=== PATIENT | female | born 1955 | race Caucasian/White ===

== ENCOUNTER 2018-11-20 11:50 | Emergency (ER) | payer SELFPAY ==
[2018-11-20] MEDS ORDERED: KETOROLAC 30 MG/ML INJ ONE (13:06)
[2018-11-20 13:10] LABS: Urine Blood NEGATIVE (NEG); Urine Glucose NEGATIVE (NEG); Urine Protein NEGATIVE (NEG); Urine Specific Gravity 1.025 (1.005-1.030); Urine pH 5.5 (5.0-7.0)
[2018-11-20 13:32] LABS: Absolute Lymphocytes (CBC) 1.6 K/uL (0.7-4.9); Basophils % 0.3 % (0-1.3); Hematocrit 34.1 % (36.0-45.0); Lymphocytes % 18.5 % (15.3-44.8); RBC Red Blood Cell Count 3.77 M/uL (3.86-4.86)
--- NOTE | 2018-11-20 13:40 | RAD REPORT ---
EXAM DESCRIPTION: CT - Stone Protocol - 11/20/2018 1:17 pm CLINICAL HISTORY: Flank pain, history of recent UTI diagnosis COMPARISON: None. TECHNIQUE: Axial 5 mm thick images were obtained without oral or IV contrast. The [id number] span s the entirety of the system including uppermost abdomen and lung bases. All CT scans are performed using dose optimization technique as appropriate and may include automated exposure control or mA/KV adjustment according to patient size. FINDINGS: Mild to moderate dilatation of the left side pelvis and calices noted secondary to a 9 mil limeter calcification in the proximal left ureter. On a KUB projection the stone is along the left la teral margin of the L2-3 disc space possibly superimposed on the L3 left transverse process base. No right-sided hydronephrosis. No other obstructing or nonobstructing calculi. There is stranding jacqueline ng the course of the left ureter. The stranding along the left ureter is distal to the obstructing ca lculus. No additional ureteral calculus seen. There is no calculus in a partially contracted urinary bladder. No suspicious renal masses. A 3.5 centimeter exophytic cyst projects from the posterior mid right ki dney. Isodense masses and pyelonephritis are not excluded on a stone protocol CT scan. No significant adrenal finding. Imaged portions of the liver, spleen and pancreas show no suspicious findings on non-contrast imaging . No gallbladder or biliary tree abnormality identified. Small hiatal hernia is present. No gastric abnormality. No small bowel abnormality. Large stool volum e fills the cecum. There is an overall moderate stool volume throughout the colon. There is hyperdens e material within the colon. No oral contrast was given for this examination. This may be from medica tion or possibly a diagnostic study at an outside facility. No acute GI findings are seen. No hernia, mass or bulky lymphadenopathy noted. No free air, free fluid or inflammatory stranding. Disc and bony degenerative changes are present. There is significant L5-S1 disc space narrowing with degenerative gas in the disc space. L5 pars interarticularis defects are present with grade 1-2 spond ylolisthesis. IMPRESSION: Mild to moderate hydronephrosis of the left pelvis, calices and proximal most ureter sec ondary to a 9 mm obstructing calculus of the proximal left ureter. On a KUB projection the stone is along the left lateral margin of the L2-3 disc space superimposed on the L3 left transverse process base. There is stranding along the left ureter distal to the stone. No other obstructing or nonobstructing calculi seen. Ureteritis and pyelonephritis are not excluded. Additional nonacute findings are detailed in the body of the report. Isodense masses and pyelonephritis are not excluded on stone protocol technique.
[2018-11-20 13:41] LABS: Albumin 3.5 g/dL (3.4-5.0); Bilirubin Direct 0.1 mg/dL (0-0.2); Bilirubin Total 0.3 mg/dL (0.2-1.0); Potassium 4.2 mmol/L (3.5-5.1); Protein, Total 7.8 g/dL (6.4-8.2)
[2018-11-20] MEDS ORDERED: FENTANYL CITR 100 MCG/2 ML ONE ×3 (13:44→16:31)
--- NOTE | 2018-11-20 14:31 | EDPHYS ---
Physician Documentation [facility] Name: Lindsay Gilbert Age: 63 yrs Sex: Female : 1955 Arrival Date: 11/20/2018 Time: 11:53 Bed 7 Private MD: ANA LUISA ALBA ED Physician Vernon Venegas HPI: 11/20 12:43 This 63 yrs old Female presents to ER via Ambulatory with complaints of Low jr8 Back Pain, Urinary Problem. 12:43 The patient complains of pain in the left flank. The pain radiates to the left lower jr8 quadrant. Onset: The symptoms/episode began/occurred acutely, 4 day(s) ago, and became worse yesterday. Modifying factors: The symptoms are alleviated by nothing. the symptoms are aggravated by movement. Associated signs and symptoms: Pertinent negatives: dysuria, fever, urinary frequency. Severity of pain: At its worst the pain was moderate in the emergency department the pain is actually worse is a 10 / 10. The patient has not experienced similar symptoms in the past. The patient has been recently seen by a physician: the patient's primary care provider, 4 day(s) ago, with similar presenting complaints, and apparently given a diagnosis of UTI, was told she had blood in urine, but the patient's symptoms have worsened, but the patient's symptoms have persisted. Patient reports left flank pain onset 4 days ago, saw PCP on that day and was diagnosed with UTI and told her had blood in her urine. She was given cipro and ibuprofen which she has been taking as prescribed. Patient reports ibuprofen initially helped significantly, but the pain worsened yesterday morning and is unrelieved by ibuprofen. She denies any urinary symptoms previously or currently. 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 - Social history:: Smoking status: Patient/guardian denies using tobacco, the patient reports quitting approximately 5 years ago. - Ebola Screening: : Patient denies travel to an Ebola-affected area in the 21 days before illness onset. ROS: 12:43 Constitutional: Negative for fever, chills, and weight loss, Eyes: Negative for injury, jr8 pain, redness, and discharge, ENT: Negative for injury, pain, and discharge, Neck: Negative for injury, pain, and swelling, Cardiovascular: Negative for chest pain, palpitations, and edema, Respiratory: Negative for shortness of breath, cough, wheezing, and pleuritic chest pain, Abdomen/GI: Negative for abdominal pain, nausea, vomiting, diarrhea, and constipation, MS/Extremity: Negative for injury and deformity, Skin: Negative for injury, rash, and discoloration, Neuro: Negative for headache, weakness, numbness, tingling, and seizure. 12:43 Back: Positive for flank pain, on the left, Negative for injury or acute deformity, decreased range of motion. Exam: 12:43 Constitutional: This is a well developed, well nourished patient who is awake, alert, jr8 and in no acute distress. Appears uncomfortable and restless. Head/Face: Normocephalic, atraumatic. Cardiovascular: Regular rate and rhythm with a normal S1 and S2. No gallops, murmurs, or rubs. Normal PMI, no JVD. No pulse deficits. Respiratory: Lungs have equal breath sounds bilaterally, clear to auscultation and percussion. No rales, rhonchi or wheezes noted. No increased work of breathing, no retractions or nasal flaring. Abdomen/GI: Soft, non-tender, with normal bowel sounds. No distension or tympany. No guarding or rebound. No evidence of tenderness throughout. Skin: Warm, dry with normal turgor. Normal color with no rashes, no lesions, and no evidence of cellulitis. MS/ Extremity: Pulses equal, no cyanosis. Neurovascular intact. Full, normal range of motion. Neuro: Awake and alert, GCS 15, oriented to person, place, time, and situation. Cranial nerves II-XII grossly intact. Motor strength 5/5 in all extremities. Sensory grossly intact. Cerebellar exam normal. Normal gait. 12:43 Back: pain, that is moderate, normal spinal alignment noted, CVA tenderness, is absent, vertebral tenderness, is not appreciated, muscle spasm, is not present. Vital Signs: 12:05 BP 171 / 86; Pulse 74; Resp 18; Temp 98.8(TE); Pulse Ox 97% on R/A; Weight 106.59 kg; hj Height 5 ft. 6 in. (167.64 cm); Pain 10/10; 13:31 BP 156 / 93; Pulse 69; Resp 17; Pulse Ox 99% on R/A; tw2 14:28 BP 149 / 86; Pulse 76; Resp 16; Pulse Ox 97% on R/A; tw2 14:55 BP 154 / 90; Pulse 64; Resp 17; Pulse Ox 99% ; Pain 7/10; tw2 16:23 BP 138 / 85; Pulse 83; Resp 17; Pulse Ox 99% on R/A; Pain 8/10; tw2 12:05 Body Mass Index 37.93 (106.59 kg, 167.64 cm) hj MDM: 12:23 Patient medically screened. jr8 14:16 Data reviewed: vital signs, nurses notes, lab test result(s), radiologic studies, CT jr8 scan. Data interpreted: Pulse oximetry: on room air is 99 %. Interpretation: normal. Counseling: I had a detailed discussion with the patient and/or guardian regarding: the historical points, exam findings, and any diagnostic results supporting the discharge/admit diagnosis, lab results, radiology results, the need to transfer to another facility, [facility] does not immediately have the required specialist. 14:29 ED course: Dr. Obando and Urology consulted and accepted patient at [facility] for jr8 obstructed renal stone left side . 11/20 12:41 Order name: Basic Metabolic Panel; Complete Time: 13:44 [facility] 11/20 12:41 Order name: CBC with Diff; Complete Time: 13:40 [facility] 11/20 12:41 Order name: Creatinine for Radiology; Complete Time: 13:40 [facility] 11/20 12:41 Order name: Hepatic Function; Complete Time: 13:44 [facility] 11/20 12:41 Order name: Lipase; Complete Time: 13:44 [facility] 11/20 12:53 Order name: Urine Dipstick--Ancillary (enter results); Complete Time: 13:13 11/20 12:07 Order name: Urine Dipstick-Ancillary (obtain specimen); Complete Time: 12:57 11/20 12:41 Order name: IV Saline Lock; Complete Time: 13:11 [facility] 11/20 12:41 Order name: CT Stone Protocol; Complete Time: 13:44 jr8 11/20 12:41 Order name: Labs collected and sent; Complete Time: 13:11 jr8 Administered Medications: 13:09 Drug: TORadol - Ketorolac 15 mg Route: IVP; Site: right upper arm; tw2 13:23 Follow up: Response: No adverse reaction; Pain is unchanged, physician notified tw2 13:30 Drug: fentaNYL (PF) 50 mcg Route: IVP; Site: right upper arm; tw2 14:27 Follow up: Response: No adverse reaction; Pain is decreased tw2 14:20 Drug: fentaNYL (PF) 50 mcg Route: IVP; Site: right upper arm; tw2 16:35 Follow up: Response: No adverse reaction; Pain is decreased tw2 14:35 Drug: NS 0.9% 1000 ml Route: IV; Rate: 100 ml/hr; Site: right upper arm; tw2 16:35 Follow up: IV Status: Infusion continued upon transfer tw2 14:54 Drug: fentaNYL (PF) 50 mcg Route: IVP; Site: right upper arm; tw2 15:00 Follow up: Response: No adverse reaction; Pain is decreased tw2 Disposition: 11/21 06:49 Co-signature as Attending Physician, Vernon Venegas MD I agree with the assessment and kdr plan of care. Disposition: 11/20/18 14:[address] [facility]. Diagnosis is Hydronephrosis with renal and ureteral calculous obstruction. - Reason for transfer: Higher level of care. - Accepting physician is Dr. Obando. - Condition is Stable. - Problem is new. - Symptoms have improved. Signatures: Dispatcher [employer] EDMS Vernon Venegas MD MD [facility] Shade Miranda PA PA jr8 Isidro Miles RN RN Monique Blake RN RN tw2 Corrections: (The following items were deleted from the chart) 11/20 16:37 14:30 11/20/2018 14:[address] [facility]. Diagnosis is tw2 Hydronephrosis with renal and ureteral calculous obstruction. Reason for transfer: Higher level of care. Accepting physician is Dr. Obando. Condition is Stable. Problem is new. Symptoms have improved. jr8
--- NOTE | 2018-11-20 14:31 | ER ---
Nurse's Notes [facility] Name: Lindsay Gilbert Age: 63 yrs Sex: Female : 1955 Arrival Date: 11/20/2018 Time: 11:53 Bed 7 Private MD: ANA LUISA ALBA Diagnosis: Hydronephrosis with renal and ureteral calculous obstruction Presentation: 11/20 12:02 Presenting complaint: Patient states: i went ot my doc Saturday, told i have acute UTI, hj was Rx, cipro oral and ibuprofen 800 mg; isabel been taking those meds but the pain meds not helping with the pain; denies F/C; denies N/V;. Transition of care: patient was not received from another setting of care. Onset of symptoms was November 20, 2018. Risk Assessment: Do you want to hurt yourself or someone else? Patient reports no desire to harm self or others. Initial Sepsis Screen: Does the patient meet any 2 criteria? No. Patient's initial sepsis screen is negative. Does the patient have a suspected source of infection? No. Patient's initial sepsis screen is negative. Care prior to arrival: None. 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 - Social history:: Smoking status: Patient/guardian denies using tobacco, the patient reports quitting approximately 5 years ago. - Ebola Screening: : Patient denies travel to an Ebola-affected area in the 21 days before illness onset. Screenin:01 Abuse screen: Denies threats or abuse. Nutritional screening: No deficits noted. tw2 Tuberculosis screening: No symptoms or risk factors identified. Fall Risk None identified. Assessment: 13:01 General: Appears uncomfortable, obese, Behavior is calm, cooperative, appropriate for tw2 age. Pain: Complains of pain in abdomen and left lower quadrant. Neuro: Level of Consciousness is awake, alert, obeys commands, Oriented to person, place, time, situation. Cardiovascular: Heart tones S1 S2 Patient's skin is warm and dry. Respiratory: Airway is patent Respiratory effort is even, unlabored, Respiratory pattern is regular, symmetrical, Breath sounds are clear bilaterally. GI: Abdomen is round non-distended, obese, Bowel sounds present X 4 quads. : Reports urgency, urinary frequency. EENT: No signs and/or symptoms were reported regarding the EENT system. Derm: No signs and/or symptoms reported regarding the dermatologic system. Musculoskeletal: Range of motion: intact in all extremities. 13:31 Reassessment: No changes from previously documented assessment. Patient and/or family tw2 updated on plan of care and expected duration. Pain level reassessed. Patient is alert, oriented x 3, equal unlabored respirations, skin warm/dry/pink. 13:58 Reassessment: Lemon glycerin swabs given to the pt. sv 14:28 Reassessment: Patient appears in no apparent distress at this time. Patient and/or tw2 family updated on plan of care and expected duration. Pain level reassessed. Patient is alert, oriented x 3, equal unlabored respirations, skin warm/dry/pink. Patient states feeling better. 14:55 Reassessment: Patient and/or family updated on plan of care and expected duration. Pain tw2 level reassessed. Patient is alert, oriented x 3, equal unlabored respirations, skin warm/dry/pink. pt c/o pain, medicated as ordered, spouse went home to get belongings, pt would like ems to wait until he returns, pt instructed that report has not been called yet for the transfer and that they have time. 16:24 Reassessment: Patient appears in no apparent distress at this time. Patient and/or tw2 family updated on plan of care and expected duration. Pain level reassessed. Patient is alert, oriented x 3, equal unlabored respirations, skin warm/dry/pink. pt c/o pain, medicated as ordered. 16:37 Reassessment: No changes from previously documented assessment. Patient and/or family tw2 updated on plan of care and expected duration. Pain level reassessed. Patient is alert, oriented x 3, equal unlabored respirations, skin warm/dry/pink. Vital Signs: 12:05 BP 171 / 86; Pulse 74; Resp 18; Temp 98.8(TE); Pulse Ox 97% on R/A; Weight 106.59 kg; hj Height 5 ft. 6 in. (167.64 cm); Pain 10/10; 13:31 BP 156 / 93; Pulse 69; Resp 17; Pulse Ox 99% on R/A; tw2 14:28 BP 149 / 86; Pulse 76; Resp 16; Pulse Ox 97% on R/A; tw2 14:55 BP 154 / 90; Pulse 64; Resp 17; Pulse Ox 99% ; Pain 7/10; tw2 16:23 BP 138 / 85; Pulse 83; Resp 17; Pulse Ox 99% on R/A; Pain 8/10; tw2 12:05 Body Mass Index 37.93 (106.59 kg, 167.64 cm) ED Course: 11:53 Patient arrived in ED. cl3 11:54 ANA LUISA ALBA is Private Physician. cl3 12:04 Triage completed. hj 12:05 Arm band placed on. hj 12:23 Shade Miranda PA is PHCP. jr8 12:23 Vernon Venegas MD is Attending Physician. jr8 12:47 Monique Blake, LEN is Primary Nurse. tw2 12:56 Urine collected: clean catch specimen, clear, kyler colored. jb1 13:00 Missed attempt(s): 22 gauge in right antecubital area. blood collected in lavender tube tw2 only. 13:01 Bed in low position. Call light in reach. Pulse ox on. NIBP on. tw2 13:09 Initial lab(s) drawn, by me, sent to lab. Inserted saline lock: 22 gauge in right upper jb1 arm, using aseptic technique. Blood collected. 13:18 CT Stone Protocol In Process Unspecified. EDMS 14:06 initiated a transfer with Brooklynn at the [facility] [place]. eb 14:15 connected the urologist fire prevention specialist for [facility] with [facility] for patient transfer eb consultation. 14:26 connected the hospitalist fire prevention specialist for [facility] with [facility] for patient transfer eb consultation. 14:56 administrative approval given by Brooklynn Hickey RN/ patient has been accepted to [facility] 16 tower bed 1615/ Jay [facility] has accepted the patient in transfer/ report to be called to [phone]. 15:11 Awaiting: unsuccessful attempt to call report to [facility] at this time. tw2 15:27 Report given to LEN Best at [facility]. tw2 16:37 No provider procedures requiring assistance completed. Patient transferred, IV remains tw2 in place. Administered Medications: 13:09 Drug: TORadol - Ketorolac 15 mg Route: IVP; Site: right upper arm; tw2 13:23 Follow up: Response: No adverse reaction; Pain is unchanged, physician notified tw2 13:30 Drug: fentaNYL (PF) 50 mcg Route: IVP; Site: right upper arm; tw2 14:27 Follow up: Response: No adverse reaction; Pain is decreased tw2 14:20 Drug: fentaNYL (PF) 50 mcg Route: IVP; Site: right upper arm; tw2 16:35 Follow up: Response: No adverse reaction; Pain is decreased tw2 14:35 Drug: NS 0.9% 1000 ml Route: IV; Rate: 100 ml/hr; Site: right upper arm; tw2 16:35 Follow up: IV Status: Infusion continued upon transfer tw2 14:54 Drug: fentaNYL (PF) 50 mcg Route: IVP; Site: right upper arm; tw2 15:00 Follow up: Response: No adverse reaction; Pain is decreased tw2 Outcome: 14:30 ER care complete, transfer ordered by . karyn 16:37 Patient left the ED. tw2 16:37 Transferred by ground EMS to [facility]. tw2 16:37 Condition: stable 16:37 Instructed on the need for transfer. Signatures: Dispatcher [employer] EDMS Connor Segal jbZarina Barber, RN Shade Beyer PA PA jr8 Isidro Miles RN RN hj Wise, Tara, RN RN tw2 Shivani Ovalles Charde cl3 Corrections: (The following items were deleted from the chart) 12:07 12:05 Pulse 74bpm; Resp 18bpm; Pulse Ox 97% RA; Temp 98.8F Temporal; 106.59 kg; Height hj 5 ft. 6 in.; BMI: 37.9; Pain 10/10; hj 13:23 13:05 Inserted saline lock: 22 gauge in right upper arm, using aseptic technique. tw2 ,using aseptic technique. per Samantha Ryan Blood collected. tw2
[2018-11-20] MEDS ORDERED: NA CHLORIDE 0.9% 1,000 ML ONE (14:49)
== END 2018-11-20 16:37 | disposition short-term general hospital (02) ==
LOC: ER 11:50
DX: N13.2 Hydronephrosis with renal and ureteral calculous obstruction (principal); Z87.891 Personal history of nicotine dependence
CPT/HCPCS: 36415; 74176; 76377; 80048; 80076; 81003; 83690; 85025; 96361; 96374; 96375; 99285; J3010; J7030

== ENCOUNTER 2018-12-01 11:16 | Emergency (ER) | payer SELFPAY ==
--- OUTSIDE RECORDS SUMMARY | 2018-12-01 11:23 | XMS REPORT | Clinical Summary ---
:1955 Author Organization [facility] Address [address] [place] [address] Care Team Providers Name Role Phone Pcp, No Primary Care Provider Unavailable Allergies Active Allergy Reactions Severity Noted Date Comments Penicillins Swelling High 11/20/2018 Medications Medication Sig Dispensed Refills Start Date End Date Status oxybutynin (DITROPAN) Take 1 tablet 30 tablet 0 11/21/2018 Active 5 MG tablet (5 mg total) 9 by mouth 3 (three) times daily as needed (bladder spasms) for up to 30 days. tamsulosin (FLOMAX) Take 1 30 capsule 0 11/22/2018 Active 0.4 mg Cap 24 hr capsule (0.4 9 capsule mg total) by mouth daily for 30 days. HYDROcodone-acetamino Take 1 tablet 30 tablet 0 11/21/2018 Active phen (NORCO 5-325) by mouth 9 5-325 mg per tablet every 4 (four) hours as needed for up to 10 days. Max Daily Amount: 6 tablets ciprofloxacin HCl Take 500 mg 0 Discontinued (CIPRO) 500 MG by mouth 2 9 tabletIndications: (two) times Bacterial Urinary daily. Tract Infection ibuprofen Take 800 mg 0 Discontinued (ADVIL,MOTRIN) 800 MG by mouth 9 tabletIndications: every 8 Pain (eight) hours as needed for Pain. phenazopyridine Take 2 10 tablet 0 11/21/2018 (PYRIDIUM) 95 MG tablets (190 9 tablet mg total) by mouth 3 (three) times daily as needed (dysuria) for up to 3 days. Active Problems Problem Noted Date Obstructive uropathy 11/20/2018 Encounters Date Type Specialty Care Team Description 11/21/2018 Surgery Melodie, CYSTOSCOPY,INSERTION MD Giorgi URETERAL STENTS 11/21/2018 Anesthesia Event [place], Finn EmersonDESHAUN 11/20/2018 - Hospital Encounter General Internal Elia Obando Obstructive uropathy 11/21/2018 MD Lazaro Evans Sonal Muralinath, MD 11/20/2018 Travel after 11/30/2017 Social History Tobacco Use Types Packs/Day Years Used Date Former Smoker Cigarettes Quit: 2013 Tobacco Cessation: Counseling Given: No Alcohol Use Drinks/Week oz/Week Comments No Alcohol Habits Answer Date Recorded How often do you have a drink containing alcohol? Never 11/20/2018 How many drinks containing alcohol do you have on a typical Not asked day when you are drinking? How often do you have six or more drinks on one occasion? Not asked Sex Assigned at Date Recorded Not on file Job Start Date Occupation Industry Not on file Not on file Not on file Travel History Travel Start Travel End No recent travel history available. Last Filed Vital Signs Vital Sign Reading Time Taken Blood Pressure 124/76 11/21/2018 3:17 PM CDT Pulse 108 11/21/2018 3:17 PM CDT Temperature 36.6 C (97.9 F) 11/21/2018 3:17 PM CDT Respiratory Rate 18 11/21/2018 3:17 PM CDT Oxygen Saturation 94% 11/21/2018 3:17 PM CDT Inhaled Oxygen Concentration - - Weight 106.6 kg (235 lb) 11/20/2018 8:11 PM CDT Height 167.6 cm (5' 6") 11/20/2018 8:11 PM CDT Body Mass Index 37.93 11/20/2018 8:11 PM CDT Plan of Treatment Not on file Implants Implanted Type Area Direct Support Professional Device Shelf Model / Identifier Expiration Serial / Date Lot Set Stent Injection 6x26cm [id number] - [id number] IMPLANTS Left: [employer] 06/24/2020 [id number] / Implanted: Qty: 1 on 11/21/2018 by Giorgi Sewell MD [employer]: ONCOLOGY / [id number] Procedures Procedure Name Priority Date/Time Associated Diagnosis Comments RHYTHM STRIP - 11/24/2018 12:00 SCAN PM CDT URINE CULTURE Routine 11/21/2018 8:09 Results for this AM CDT procedure are in the results section. CYSTOSCOPY,INSERTI 11/21/2018 7:15 Ureteral stone with ON URETERAL STENTS AM CDT hydronephrosis Special Needs REQ 2130 BASIC METABOLIC PANEL (7) Routine 11/21/2018 1:25 AM CDT CBC W/PLT COUNT & AUTO Routine 11/21/2018 12:57 AM CDT Results for this DIFFERENTIAL procedure are in the results section. APTT Routine 11/21/2018 12:57 AM CDT PROTHROMBIN TIME/INR Routine 11/21/2018 12:57 AM CDT CBC W/PLT COUNT & AUTO Routine 11/21/2018 12:57 AM CDT Results for this DIFFERENTIAL procedure are in the results section. after 11/30/2017 Results RHYTHM STRIP - SCAN (11/24/2018 12:00 PM CDT) Narrative Performed At Urine culture (11/21/2018 8:09 AM CDT) Result No growth [facility] Specimen Urine - Urine, Surgically Obtained Performing Organization Address City/State/Zipcode Phone Number [facility] [address] [place] [address] CENTER Basic metabolic panel (11/21/2018 1:25 AM CDT) Sodium 133 (L) 136 - 145 meq/L [facility] Potassium 4.1 3.5 - 5.1 meq/L [facility] Chloride 100 98 - 107 meq/L [facility] CO2 23 22 - 29 meq/L [facility] BUN 18 7 - 21 mg/dL [facility] Creatinine 1.24 0.57 - 1.25 mg/dL [facility] Glucose 127 (H) 70 - 105 mg/dL [facility] Calcium 9.4 8.4 - 10.2 mg/dL [facility] EGFR 44Comment: ESTIMATED GFR IS mL/min/1.73 sq m [facility] NOT ACCURATE [facility] CLEARANCE IN PREDICTING GLOMERULAR FILTRATION RATE. ESTIMATED GFR IS NOT APPLICABLE FOR DIALYSIS PATIENTS. Specimen Blood Performing Organization Address City/State/Zipcode Phone Number [facility] [address] [place] [address] CENTER CBC with platelet count + automated diff (11/21/2018 12:57 AM CDT) WBC 12.9 (H) 3.5 - 10.5 K/L [facility] RBC 3.63 (L) 3.93 - 5.22 M/L [facility] Hemoglobin 10.9 (L) 11.2 - 15.7 GM/DL [facility] Hematocrit 33.2 (L) 34.1 - 44.9 % [facility] MCV 91.5 79.4 - 94.8 fL [facility] MCH 30.0 25.6 - 32.2 pg [facility] MCHC 32.8 32.2 - 35.5 GM/DL [facility] RDW 12.2 11.7 - 14.4 % [facility] Platelets 291 150 - 450 K/CU MM [facility] MPV 9.5 9.4 - 12.3 fL [facility] nRBC 0 0 - 0 /100 WBC [facility] % Neutros 72 % [facility] % Lymphs 17 % [facility] % Monos 9 % [facility] % Eos 2 % [facility] % Baso 0 % [facility] # Neutros 9.19 (H) 1.56 - 6.13 K/L [facility] # Lymphs 2.15 1.18 - 3.74 K/L [facility] # Monos 1.20 (H) 0.24 - 0.36 K/L [facility] # Eos 0.25 0.04 - 0.36 K/L [facility] # Baso 0.03 0.01 - 0.08 K/L [facility] Immature Granulocytes-Relative 0 0 - 1 % [facility] Specimen Blood Performing Organization Address City/[facility]/Zipcode Phone Number [address] [phone] [place] aPTT (11/21/2018 12:57 AM CDT) PTT 30.3 22.5 - 36.0 seconds [facility] Specimen Blood Performing Organization Address [facility] Phone Number [address] [phone] [place] Prothrombin time/INR (11/21/2018 12:57 AM CDT) Protime 14.4 (H) 11.9 - 14.2 seconds [facility] INR 1.2 <=5.9 [facility] Specimen Blood Narrative Performed At Effective 09/24/2018: PT Reference Range [facility] Change New: 11.9-14.2Previous: 11.7-14.7 RECOMMENDED COUMADIN/WARFARIN INR THERAPY RANGES STANDARD DOSE: 2.0-3.0Includes: PROPHYLAXIS for venous thrombosis, systemic embolization; TREATMENT for venous thrombosis and/or pulmonary embolus. HIGH RISK: Target INR is 2.5-3.5 for patients wiht mechanical heart valves. Performing Organization Address [facility] Centercode Phone Number [address] [address] [place] after 11/30/2017 Advance Directives For more information, please contact:[address] [phone] Code Status Date Activated Date Inactivated Comments Full Code 11/20/2018 6:29 PM 11/21/2018 7:30 PM This code status was determined by: Patient
--- OUTSIDE RECORDS SUMMARY | 2018-12-01 11:24 | XMS REPORT ---
:1955 [facility] Address [address] [place] [address] Care Team Providers Name Role Phone YVONNE MITCHELL Unavailable Unavailable Problems This patient has no known problems. Allergies, Adverse Reactions, Alerts This patient has no known allergies or adverse reactions. Medications This patient has no known medications. Results Test Description Test Time Test Comments Text Results Atomic Results Result Comments URINE CULTURE 2018-11-23 12:44:00 Test Item Value Reference Range Comments CULTURE (BEAKER) (test gsqi=7365) No growth BASIC METABOLIC [id number] 02:04:00 Test Item Value Reference Range Comments SODIUM (BEAKER) (test 133 meq/L 136-145 wbfk=554) POTASSIUM (BEAKER) (test 4.1 meq/L 3.5-5.1 ngoz=950) CHLORIDE (BEAKER) (test 100 meq/L 98-107 nrwb=031) CO2 (BEAKER) (test 23 meq/L 22-29 wllb=414) BLOOD UREA NITROGEN 18 mg/dL 7-21 (BEAKER) (test lvbw=881) CREATININE (BEAKER) (test 1.24 mg/dL 0.57-1.25 pezy=693) GLUCOSE RANDOM (BEAKER) 127 mg/dL 70-105 (test yfog=364) CALCIUM (BEAKER) (test 9.4 mg/dL 8.4-10.2 ztqb=603) EGFR (BEAKER) (test 44 mL/min/1.73 sq m ESTIMATED GFR IS NOT rzeu=2216) ACCURATE CREATININE CLEARANCE IN PREDICTING GLOMERULAR FILTRATION RATE. ESTIMATED GFR IS NOT APPLICABLE FOR DIALYSIS PATIENTS. [id number] 01:49:00 Test Item Value Reference Range Comments PARTIAL THROMBOPLASTIN TIME (BEAKER) (test 30.3 seconds 22.5-36.0 uzwu=064) PROTHROMBIN TIME/[id number] 01:48:00 Test Item Value Reference Range Comments PROTIME (BEAKER) (test vdec=524) 14.4 seconds 11.9-14.2 INR (BEAKER) (test oyln=177) 1.2 <=5.9 Effective 09/24/2018: PT Reference Range ChangeNew: 11.9-14.2 Previous: 11.7- 14.7RECOMMENDED COUMADIN/WARFARIN INR THERAPY RANGESSTANDARD DOSE: 2.0-3.0 Includes: PROPHYLAXIS for venous thrombosis, systemic embolization; TREATMENT for venous thrombosis and/or pulmonary embolus.HIGH RISK: Target INR is2.5-3.5 for patients wiht mechanical heart valves.CBC W/PLT COUNT & AUTO [id number] 01:06:00 Test Item Value Reference Range Comments WHITE BLOOD CELL COUNT (BEAKER) (test amoe=391) 12.9 K/ L 3.5-10.5 RED BLOOD CELL COUNT (BEAKER) (test rmcl=503) 3.63 M/ L 3.93-5.22 HEMOGLOBIN (BEAKER) (test mszy=095) 10.9 GM/DL 11.2-15.7 HEMATOCRIT (BEAKER) (test jtke=245) 33.2 % 34.1-44.9 MEAN CORPUSCULAR VOLUME (BEAKER) (test dcux=066) 91.5 fL 79.4-94.8 MEAN CORPUSCULAR HEMOGLOBIN (BEAKER) (test 30.0 pg 25.6-32.2 ioat=032) MEAN CORPUSCULAR HEMOGLOBIN CONC (BEAKER) (test 32.8 GM/DL 32.2-35.5 xrjc=710) RED CELL DISTRIBUTION WIDTH (BEAKER) (test 12.2 % 11.7-14.4 bozj=927) PLATELET COUNT (BEAKER) (test lulh=195) 291 K/CU MM 150-450 MEAN PLATELET VOLUME (BEAKER) (test ekul=651) 9.5 fL 9.4-12.3 NUCLEATED RED BLOOD CELLS (BEAKER) (test 0 /100 WBC 0-0 mpoy=091) NEUTROPHILS RELATIVE PERCENT (BEAKER) (test 72 % uuuk=492) LYMPHOCYTES RELATIVE PERCENT (BEAKER) (test 17 % kjnr=009) MONOCYTES RELATIVE PERCENT (BEAKER) (test 9 % zkcf=853) EOSINOPHILS RELATIVE PERCENT (BEAKER) (test 2 % uuda=112) BASOPHILS RELATIVE PERCENT (BEAKER) (test 0 % eyyr=034) NEUTROPHILS ABSOLUTE COUNT (BEAKER) (test 9.19 K/ L 1.56-6.13 atid=381) LYMPHOCYTES ABSOLUTE COUNT (BEAKER) (test 2.15 K/ L 1.18-3.74 qkar=709) MONOCYTES ABSOLUTE COUNT (BEAKER) (test 1.20 K/ L 0.24-0.36 uxgt=330) EOSINOPHILS ABSOLUTE COUNT (BEAKER) (test 0.25 K/ L 0.04-0.36 cocb=311) BASOPHILS ABSOLUTE COUNT (BEAKER) (test 0.03 K/ L 0.01-0.08 zfuv=295) IMMATURE GRANULOCYTES-RELATIVE PERCENT (BEAKER) 0 % 0-1 (test ftii=9382)
[2018-12-01 12:25] LABS: Urine Blood 3+ (NEG); Urine Glucose NEGATIVE (NEG); Urine Protein TRACE (NEG); Urine pH 7.5 (5.0-7.0)
[2018-12-01 12:26] LABS: Absolute Lymphocytes (CBC) 2.5 K/uL (0.7-4.9); Basophils % 1.4 % (0-1.3); Hematocrit 36.9 % (36.0-45.0); Lymphocytes % 34.2 % (15.3-44.8); MPV 8.1 fL (7.6-11.3)
[2018-12-01] MEDS ORDERED: NA CHLORIDE 0.9% 500 ML ONE (12:37)
[2018-12-01 12:52] LABS: Albumin 3.7 g/dL (3.4-5.0); Bilirubin Direct 0.1 mg/dL (0-0.2); Bilirubin Total 0.5 mg/dL (0.2-1.0); Potassium 3.8 mmol/L (3.5-5.1); Protein, Total 7.8 g/dL (6.4-8.2)
[2018-12-01 13:21] LABS: Urine RBC >50 /HPF (NONE SEEN)
[2018-12-01 13:24] LABS: Urine Bacteria 20-50 /HPF (<20); Urine Culture Reflex Order REFLEXED
[2018-12-01] MEDS ORDERED: CEFTRIAXONE/SWI 1gm 1 GM/10 ML SYR ONE (13:39)
--- NOTE | 2018-12-01 14:49 | ER ---
Nurse's Notes [facility] Name: Lindsay Gilbert Age: 63 yrs Sex: Female : 1955 Arrival Date: 12/01/2018 Time: 11:20 Bed 26 Private MD: Diagnosis: acute UTI;hematuria Presentation: 12/01 11:41 Presenting complaint: Patient states: Instructed by Dr. Campa's office to come to ER ss for evaluation of blood in urine. Patient was recently transferred to [facility] for kidney stone and had stent placed. Patient reports her pain is better, but she still has blood in urine. Attempted to f/u with urology (Dr. Campa) last week, but was out of office. Transition of care: patient was not received from another setting of care. Onset of symptoms is unknown. Risk Assessment: Do you want to hurt yourself or someone else? Patient reports no desire to harm self or others. Initial Sepsis Screen: Does the patient meet any 2 criteria? No. Patient's initial sepsis screen is negative. Does the patient have a suspected source of infection? No. Patient's initial sepsis screen is negative. Care prior to arrival: None. 11:41 Method Of Arrival: Ambulatory 11:41 Acuity: LATOYA 3 ss Historical: - Allergies: 11:44 Codeine; ss 11:44 PENICILLINS; ss - PSHx: 11:44 Hysterectomy; renal stent; ss - Immunization history:: Adult Immunizations up to date. - Social history:: Smoking status: Patient uses tobacco products, quit smoking cigarettes 6 years ago, now "vapes". - Ebola Screening: : Patient denies exposure to infectious person Patient denies travel to an Ebola-affected area in the 21 days before illness onset. - Family history:: not pertinent. - Hospitalizations: : Patient was recently seen at [facility]. Screenin:50 Abuse screen: Denies threats or abuse. Denies injuries from another. Nutritional aj1 screening: No deficits noted. Tuberculosis screening: No symptoms or risk factors identified. 15:07 Fall Risk None identified. rv Assessment: 11:50 General: Appears in no apparent distress. comfortable, Behavior is calm, cooperative, aj1 appropriate for age. Pain: Pain currently is 5 out of 10 on a pain scale. Neuro: Level of Consciousness is awake, alert, obeys commands. Cardiovascular: Patient's skin is warm and dry. Respiratory: Airway is patent Respiratory effort is even, unlabored, Respiratory pattern is regular, symmetrical. GI: No signs and/or symptoms were reported involving the gastrointestinal system. : Reports blood in urine. EENT: No signs and/or symptoms were reported regarding the EENT system. Derm: No signs and/or symptoms reported regarding the dermatologic system. Skin is pink, warm \\T\\ dry. normal. Musculoskeletal: No signs and/or symptoms reported regarding the musculoskeletal system. Circulation, motion, and sensation intact. 13:05 Reassessment: Patient appears in no apparent distress at this time. No changes from aj1 previously documented assessment. Patient and/or family updated on plan of care and expected duration. Pain level reassessed. Patient is alert, oriented x 3, equal unlabored respirations, skin warm/dry/pink. Vital Signs: 11:44 BP 149 / 95; Pulse 85; Resp 16; Temp 98.4(O); Pulse Ox 97% on R/A; Weight 104.33 kg; Height 5 ft. 6 in. (167.64 cm); Pain 5/10; 13:09 BP 121 / 76; Pulse 75; Resp 18; Pulse Ox 99% on R/A; aj1 15:06 BP 112 / 75; Pulse 70; Resp 15; Pulse Ox 100% on R/A; rv 11:44 Body Mass Index 37.12 (104.33 kg, 167.64 cm) ED Course: 11:20 Patient arrived in ED. mr 11:31 Polo Comer MD is Attending Physician. wa 11:43 Triage completed. ss 11:44 Vicki Luu, LEN is Primary Nurse. aj1 11:44 Arm band placed on right wrist. ss 11:50 Patient has correct armband on for positive identification. Bed in low position. Call aj1 light in reach. Side rails up X 1. 11:50 No provider procedures requiring assistance completed. aj1 12:10 Initial lab(s) drawn, by me, sent to lab. Inserted saline lock: 20 gauge in right dh3 wrist, using aseptic technique. Blood collected. 14:47 Omaira Campa MD is Referral Physician. wa 15:07 IV discontinued, intact, bleeding controlled, No redness/swelling at site. Pressure rv dressing applied. Administered Medications: 12:50 Drug: NS 0.9% 500 ml Volume: 500 ml; Route: IV; Rate: 1 bolus; Site: right wrist; aj1 13:59 Follow up: IV Status: Completed infusion rv 13:57 Drug: Rocephin - (cefTRIAXone) 1 grams Route: IVPB; Infused Over: 30 mins; Site: right rv wrist; 15:02 Follow up: IV Status: Completed infusion rv Outcome: 14:48 Discharge ordered by . tray 15:07 Discharged to home ambulatory, with family. rv 15:07 Condition: improved 15:07 Discharge instructions given to patient, Instructed on discharge instructions, follow up and referral plans. medication usage, Demonstrated understanding of instructions, follow-up care, medications, Prescriptions given X 1. 15:07 Patient left the ED. rv Signatures: Vicki Luu, RN RN ajZuly Cardoza Shelby RN RN Arin Hernandez 3 Polo Comer MD MD wa Vicente, Ronaldo, RN RN rv
--- NOTE | 2018-12-01 14:49 | EDPHYS ---
Physician Documentation [facility] Name: Lindsay Gilbert Age: 63 yrs Sex: Female : 1955 Arrival Date: 12/01/2018 Time: 11:20 Bed 26 Private MD: ED Physician Polo Comer HPI: 12/01 15:35 This 63 yrs old Female presents to ER via Ambulatory with complaints of wa Urinary Problem. 15:35 The patient presents with urinary symptoms, hematuria. Onset: The symptoms/episode wa began/occurred 3 day(s) ago. Modifying factors: The symptoms are alleviated by nothing, the symptoms are aggravated by nothing. Associated signs and symptoms: The patient has no apparent associated signs or symptoms. Severity of symptoms: At their worst the symptoms were moderate, in the emergency department the symptoms have improved. The patient has experienced similar episodes in the past, a few times. The patient has been recently seen by a physician: seen by urology. had ureteral stent placed. denies pain. states having intermittent bouts of bloody urine. Historical: - Allergies: 11:44 Codeine; ss 11:44 PENICILLINS; ss - PSHx: 11:44 Hysterectomy; renal stent; ss - Immunization history:: Adult Immunizations up to date. - Social history:: Smoking status: Patient uses tobacco products, quit smoking cigarettes 6 years ago, now "vapes". - Ebola Screening: : Patient denies exposure to infectious person Patient denies travel to an Ebola-affected area in the 21 days before illness onset. - Family history:: not pertinent. - Hospitalizations: : Patient was recently seen at [facility]. ROS: 15:37 Positive for hematuria, Negative for urinary frequency, vaginal bleeding. wa 15:37 Constitutional: Negative for fever, chills, and weight loss, Eyes: Negative for injury, pain, redness, and discharge, ENT: Negative for injury, pain, and discharge, Neck: Negative for injury, pain, and swelling, Cardiovascular: Negative for chest pain, palpitations, and edema, Respiratory: Negative for shortness of breath, cough, wheezing, and pleuritic chest pain, Abdomen/GI: Negative for abdominal pain, nausea, vomiting, diarrhea, and constipation, Back: Negative for injury and pain, MS/Extremity: Negative for injury and deformity, Skin: Negative for injury, rash, and discoloration, Neuro: Negative for headache, weakness, numbness, tingling, and seizure, Psych: Negative for depression, anxiety, suicide ideation, homicidal ideation, and hallucinations. 15:37 : Negative for pelvic pain, flank pain. Exam: 15:38 Constitutional: This is a well developed, well nourished patient who is awake, alert, wa and in no acute distress. Head/Face: Normocephalic, atraumatic. Eyes: Pupils equal round and reactive to light, extra-ocular motions intact. Lids and lashes normal. Conjunctiva and sclera are non-icteric and not injected. Cornea within normal limits. Periorbital areas with no swelling, redness, or edema. ENT: Nares patent. No nasal discharge, no septal abnormalities noted. Tympanic membranes are normal and external auditory canals are clear. Oropharynx with no redness, swelling, or masses, exudates, or evidence of obstruction, uvula midline. Mucous membranes moist. Neck: Trachea midline, no thyromegaly or masses palpated, and no cervical lymphadenopathy. Supple, full range of motion without nuchal rigidity, or vertebral point tenderness. No Meningismus. Chest/axilla: Normal chest wall appearance and motion. Nontender with no deformity. No lesions are appreciated. Cardiovascular: Regular rate and rhythm with a normal S1 and S2. No gallops, murmurs, or rubs. Normal PMI, no JVD. No pulse deficits. Respiratory: Lungs have equal breath sounds bilaterally, clear to auscultation and percussion. No rales, rhonchi or wheezes noted. No increased work of breathing, no retractions or nasal flaring. Abdomen/GI: Soft, non-tender, with normal bowel sounds. No distension or tympany. No guarding or rebound. No evidence of tenderness throughout. Back: No spinal tenderness. No costovertebral tenderness. Full range of motion. Skin: Warm, dry with normal turgor. Normal color with no rashes, no lesions, and no evidence of cellulitis. MS/ Extremity: Pulses equal, no cyanosis. Neurovascular intact. Full, normal range of motion. Neuro: Awake and alert, GCS 15, oriented to person, place, time, and situation. Cranial nerves II-XII grossly intact. Motor strength 5/5 in all extremities. Sensory grossly intact. Cerebellar exam normal. Normal gait. Psych: Awake, alert, with orientation to person, place and time. Behavior, mood, and affect are within normal limits. 15:38 : CVA tenderness, is absent. Vital Signs: 11:44 BP 149 / 95; Pulse 85; Resp 16; Temp 98.4(O); Pulse Ox 97% on R/A; Weight 104.33 kg; ss Height 5 ft. 6 in. (167.64 cm); Pain 5/10; 13:09 BP 121 / 76; Pulse 75; Resp 18; Pulse Ox 99% on R/A; aj1 15:06 BP 112 / 75; Pulse 70; Resp 15; Pulse Ox 100% on R/A; rv 11:44 Body Mass Index 37.12 (104.33 kg, 167.64 cm) ss MDM: 11:31 Patient medically screened. co 15:38 Differential diagnosis: urinary tract infection, ureteral obstruction? denies pain. wa will work up. consider abx. pt states was advised to see Dr. Campa for lithotripsy. will consider referral. Data reviewed: vital signs, nurses notes. Test interpretation: by ED physician or midlevel provider: UA noted pyuria. 12/01 12:00 Order name: Basic Metabolic Panel; Complete Time: 13:30 co 12/01 12:00 Order name: CBC with Diff; Complete Time: 13:30 co 12/01 12:00 Order name: Hepatic Function; Complete Time: 13:30 co 12/01 12:00 Order name: Urine Microscopic Only; Complete Time: 13:30 co 12/01 12:22 Order name: Urine Dipstick--Ancillary (enter results); Complete Time: 13:30 12/01 13:26 Order name: Urine Culture [facility] 12/01 12:00 Order name: IV Saline Lock; Complete Time: 12:33 co 12/01 12:00 Order name: Labs collected and sent; Complete Time: 12:33 co 12/01 12:00 Order name: Urine Dipstick-Ancillary (obtain specimen); Complete Time: 12:33 co Administered Medications: 12:50 Drug: NS 0.9% 500 ml Volume: 500 ml; Route: IV; Rate: 1 bolus; Site: right wrist; aj1 13:59 Follow up: IV Status: Completed infusion rv 13:57 Drug: Rocephin - (cefTRIAXone) 1 grams Route: IVPB; Infused Over: 30 mins; Site: right rv wrist; 15:02 Follow up: IV Status: Completed infusion rv Disposition: 12/01/18 14:48 Discharged to Home. Impression: acute UTI, hematuria. - Condition is Stable. - Discharge Instructions: Urinary Tract Infection, Adult, [id number]-Wfce. - Prescriptions for Cipro 500 mg Oral Tablet - take 1 tablet by ORAL route every 12 hours for 7 days; 14 tablet. - Medication Reconciliation Form, Thank You Letter, Antibiotic Education, Prescription Opioid Use form. - Follow up: Omaira Campa MD; When: 1 - 2 days; Reason: Recheck today's complaints. - Problem is new. - Symptoms have improved. - Notes: take antibiotics as prescribed. follow up with your urologist as discussed Signatures: Dispatcher [employer] EDMS Vicki Luu RN RN aj1 Nandini Velasco RN RN Polo Comer MD MD wa Vicente, Ronaldo, RN RN rv Corrections: (The following items were deleted from the chart) 14:49 14:48 12/01/2018 14:48 Discharged to Home. Impression: acute UTI. Condition is Stable. co Forms are Medication Reconciliation Form, Thank You Letter, Antibiotic Education, Prescription Opioid Use. Follow up: Omaira Campa; When: 1 - 2 days; Reason: Recheck today's complaints. Problem is new. Symptoms have improved. co 15:07 14:49 12/01/2018 14:48 Discharged to Home. Impression: acute UTI; hematuria. Condition rv is Stable. Forms are Medication Reconciliation Form, Thank You Letter, Antibiotic Education, Prescription Opioid Use. Follow up: Omaira Campa; When: 1 - 2 days; Reason: Recheck today's complaints. Problem is new. Symptoms have improved. co
== END 2018-12-01 15:07 | disposition home or self-care (01) ==
LOC: ER 11:16
DX: N39.0 Urinary tract infection, site not specified (principal); Z72.0 Tobacco use; Z88.0 Allergy status to penicillin; Z88.5 Allergy status to narcotic agent
CPT/HCPCS: 36415; 80048; 80076; 81003; 81015; 85025; 87086; 87088; 96361; 96365; 99284; J0696

== ENCOUNTER 2018-12-09 08:54 | Day surgery (SDC) | payer SELFPAY ==
--- OUTSIDE RECORDS SUMMARY | 2018-12-09 08:58 | XMS REPORT ---
:1955 [facility] Address [address] [place] [address] Dr. Comer [address] [place] [id number] Care Team Providers Name Role Phone YVONNE MITCHELL Unavailable Unavailable Problems This patient has no known problems. Allergies, Adverse Reactions, Alerts This patient has no known allergies or adverse reactions. Medications This patient has no known medications. Results Test Description Test Time Test Comments Text Results Atomic Results Result Comments SAPPHIRE GARCIA IN 2018-12-04 16:08:00 Reason for FINAL REPORT PATIENT OR/30 MINUTE exam:->Surgical ID: [id number] INCREMENTS procedure Intraoperative fluoroscopy films performed by the referring physician. Number of images: 2Fluoroscopic time: 0.5 minutes The films were submitted to PACS postprocedure. The radiologist was not present or involved with the procedure. An interpretation was not requested. The submitted images are nondiagnostic without real-time visualization. Please refer to the performing physician's dictation for all details regarding the procedure including the submitted images. The radiologist did not perform fluoroscopy. Signed: Priscilla Kelly Verified Date/Time: 12/04/2018 16:08:18 Reading Location: [address] Consult Reading Room E CULTURE 2018-11-23 12:44:00 Test Item Value Reference Range Comments CULTURE (BEAKER) (test ifba=0601) No growth BASIC METABOLIC [id number] 02:04:00 Test Item Value Reference Range Comments SODIUM (BEAKER) (test 133 meq/L 136-145 abrj=767) POTASSIUM (BEAKER) (test 4.1 meq/L 3.5-5.1 gnzn=623) CHLORIDE (BEAKER) (test 100 meq/L 98-107 yobp=753) CO2 (BEAKER) (test 23 meq/L 22-29 icaa=745) BLOOD UREA NITROGEN 18 mg/dL 7-21 (BEAKER) (test kemk=024) CREATININE (BEAKER) (test 1.24 mg/dL 0.57-1.25 wcbf=691) GLUCOSE RANDOM (BEAKER) 127 mg/dL 70-105 (test jdir=850) CALCIUM (BEAKER) (test 9.4 mg/dL 8.4-10.2 bkzu=888) EGFR (BEAKER) (test 44 mL/min/1.73 sq m ESTIMATED GFR IS NOT mbso=5825) ACCURATE CREATININE CLEARANCE IN PREDICTING GLOMERULAR FILTRATION RATE. ESTIMATED GFR IS NOT APPLICABLE FOR DIALYSIS PATIENTS. [id number] 01:49:00 Test Item Value Reference Range Comments PARTIAL THROMBOPLASTIN TIME (BEAKER) (test 30.3 seconds 22.5-36.0 wgsw=456) PROTHROMBIN TIME/[id number] 01:48:00 Test Item Value Reference Range Comments PROTIME (BEAKER) (test psvj=995) 14.4 seconds 11.9-14.2 INR (BEAKER) (test sbic=603) 1.2 <=5.9 Effective 09/24/2018: PT Reference Range ChangeNew: 11.9-14.2 Previous: 11.7- 14.7RECOMMENDED COUMADIN/WARFARIN INR THERAPY RANGESSTANDARD DOSE: 2.0-3.0 Includes: PROPHYLAXIS for venous thrombosis, systemic embolization; TREATMENT for venous thrombosis and/or pulmonary embolus.HIGH RISK: Target INR is2.5-3.5 for patients wiht mechanical heart valves.CBC W/PLT COUNT & AUTO [id number] 01:06:00 Test Item Value Reference Range Comments WHITE BLOOD CELL COUNT (BEAKER) (test wgwd=495) 12.9 K/ L 3.5-10.5 RED BLOOD CELL COUNT (BEAKER) (test klcp=410) 3.63 M/ L 3.93-5.22 HEMOGLOBIN (BEAKER) (test rmzf=921) 10.9 GM/DL 11.2-15.7 HEMATOCRIT (BEAKER) (test qkrg=210) 33.2 % 34.1-44.9 MEAN CORPUSCULAR VOLUME (BEAKER) (test txuq=563) 91.5 fL 79.4-94.8 MEAN CORPUSCULAR HEMOGLOBIN (BEAKER) (test 30.0 pg 25.6-32.2 hjrn=535) MEAN CORPUSCULAR HEMOGLOBIN CONC (BEAKER) (test 32.8 GM/DL 32.2-35.5 yrod=937) RED CELL DISTRIBUTION WIDTH (BEAKER) (test 12.2 % 11.7-14.4 vjes=015) PLATELET COUNT (BEAKER) (test ihej=967) 291 K/CU MM 150-450 MEAN PLATELET VOLUME (BEAKER) (test vnbj=699) 9.5 fL 9.4-12.3 NUCLEATED RED BLOOD CELLS (BEAKER) (test 0 /100 WBC 0-0 qwmq=674) NEUTROPHILS RELATIVE PERCENT (BEAKER) (test 72 % tlla=684) LYMPHOCYTES RELATIVE PERCENT (BEAKER) (test 17 % mzzy=703) MONOCYTES RELATIVE PERCENT (BEAKER) (test 9 % mwft=332) EOSINOPHILS RELATIVE PERCENT (BEAKER) (test 2 % umqc=316) BASOPHILS RELATIVE PERCENT (BEAKER) (test 0 % xghc=625) NEUTROPHILS ABSOLUTE COUNT (BEAKER) (test 9.19 K/ L 1.56-6.13 saaq=828) LYMPHOCYTES ABSOLUTE COUNT (BEAKER) (test 2.15 K/ L 1.18-3.74 qavt=409) MONOCYTES ABSOLUTE COUNT (BEAKER) (test 1.20 K/ L 0.24-0.36 yiqk=175) EOSINOPHILS ABSOLUTE COUNT (BEAKER) (test 0.25 K/ L 0.04-0.36 cats=146) BASOPHILS ABSOLUTE COUNT (BEAKER) (test 0.03 K/ L 0.01-0.08 hrnd=919) IMMATURE GRANULOCYTES-RELATIVE PERCENT (BEAKER) 0 % 0-1 (test jmoi=6371)
--- OUTSIDE RECORDS SUMMARY | 2018-12-09 08:58 | XMS REPORT | Clinical Summary ---
:1955 Author Organization [facility] Address [address] [place] [address] Care Team Providers Name Role Phone Pcp, [...] total) by mouth daily for 30 days. ciprofloxacin HCl Take 500 mg 0 Discontinued [...] needed (dysuria) for up to 3 days. HYDROcodone-acetamino Take 1 tablet 30 tablet 0 11/21/2018 phen (NORCO 5-325) by mouth 9 5-325 mg per tablet every 4 (four) hours as needed for up to 10 days. Max Daily Amount: 6 tablets Active Problems Problem Noted Date Obstructive uropathy 11/20/2018 Encounters Date Type Specialty Care Team Description 11/21/2018 Surgery Melodie, CYSTOSCOPY,INSERTION MD Giorgi URETERAL STENTS 11/21/2018 Anesthesia Event BelemFinn lopezDESHAUN 11/20/2018 - Hospital Encounter General Internal Elia Obando Obstructive uropathy 11/21/2018 MD Lazaro Evans Sonal Muralinath, MD 11/20/2018 Travel after 12/08/2017 Social History Tobacco Use Types Packs/Day Years [...] Not on file Implants Implanted Type Area Gear Repairer Device Shelf Model / Identifier Expiration Serial / Date Lot Set Stent Injection 6x26cm [id number] - [id number] IMPLANTS Left: [employer] 06/24/2020 [id number] / Implanted: Qty: 1 on 11/21/2018 by Giorgi Sewell MD [employer]: ONCOLOGY / [id number] Procedures Procedure Name Priority Date/Time Associated Diagnosis Comments RHYTHM STRIP - SCAN 11/24/2018 12:00 PM CDT [place] LAUNDRY AGENT IN OR Routine 11/21/2018 8:15 Results for this 30 MINUTE AM CDT procedure are in INCREMENTS the results section. URINE CULTURE Routine 11/21/2018 8:09 Results for this AM CDT procedure are in the results section. CYSTOSCOPY,INSERTIO 11/21/2018 7:15 Ureteral stone with N URETERAL STENTS AM CDT hydronephrosis Special Needs [...] procedure are in the results section. after 12/08/2017 Results RHYTHM STRIP - SCAN (11/24/2018 12:00 PM CDT) Narrative Performed At [place] director of graduate medical education in or 30 minute increments (11/21/2018 8:15 AM CDT) Specimen Narrative Performed At FINAL REPORT [facility] Intraoperative fluoroscopy films performed by the referring physician. Number of images: 2 Fluoroscopic time: 0.5 minutes The films were submitted to PACS postprocedure. The radiologist was not present or involved with the procedure. An interpretation was not requested. The submitted images are nondiagnostic without real-time visualization. Please refer to the performing physician's dictation for all details regarding the procedure including the submitted images. The radiologist did not perform fluoroscopy. Signed: Priscilla Kelly MD Report Verified Date/Time:12/04/2018 16:08:18 Reading Location: [facility] [id number] Consult Reading Room Procedure Note Interface, External Ris In - 12/04/2018 4:10 PM CDT FINAL REPORT Intraoperative fluoroscopy films performed by the referring physician. Number of images: 2 Fluoroscopic time: 0.5 minutes The films were submitted to PACS postprocedure. The radiologist was not present or involved with the procedure. An interpretation was not requested. The submitted images are nondiagnostic without real-time visualization. Please refer to the performing physician's dictation for all details regarding the procedure including the submitted images. The radiologist did not perform fluoroscopy. Signed: Priscilla Kelly MD Report Verified Date/Time: 12/04/2018 16:08:18 Reading Location: [facility] [id number] Consult Reading Room Performing Organization Address City[facility] Phone Number RIS Urine culture (11/21/2018 8:09 AM CDT) Result No growth [facility] Specimen Urine - Urine, Surgically Obtained Performing Organization Address [facility] Phone Number [address] [address] [phone] CENTER Basic metabolic panel (11/21/2018 1:25 AM CDT) Sodium 133 (L) 136 - 145 meq/L [facility] Potassium 4.1 3.5 - 5.1 meq/L [facility] Chloride 100 98 - 107 meq/L [facility] CO2 23 22 - 29 meq/L [facility] BUN 18 7 - 21 mg/dL [facility] Creatinine 1.24 0.57 - 1.25 mg/dL [facility] Glucose 127 (H) 70 - 105 mg/dL [facility] Calcium 9.4 8.4 - 10.2 mg/dL [facility] EGFR 44Comment: ESTIMATED GFR IS mL/min/1.73 sq m [facility] NOT ACCURATE CREATININE [facility] CLEARANCE IN PREDICTING GLOMERULAR FILTRATION RATE. ESTIMATED GFR IS NOT APPLICABLE FOR DIALYSIS PATIENTS. Specimen Blood Performing Organization Address [facility] Cent[facility]ode Phone Number [address] [address] [phone] CENTER CBC with platelet count + automated diff (11/21/2018 12:57 AM CDT) WBC 12.9 (H) 3.5 - 10.5 K/L [facility] RBC 3.63 (L) 3.93 - 5.22 M/L [facility] Hemoglobin 10.9 (L) 11.2 - 15.7 GM/DL [facility] Hematocrit 33.2 (L) 34.1 - 44.9 % [facility] MCV 91.5 79.4 - 94.8 fL [facility] MCH 30.0 25.6 - 32.2 pg [facility] MCHC 32.8 32.2 - 35.5 GM/DL [facility] RDW 12.2 11.7 - 14.4 % [facility] Platelets 291 150 - 450 K/CU MM [facility] MPV 9.5 9.4 - 12.3 fL [facility] nRBC 0 0 - 0 /100 WBC [facility] % Neutros 72 % [facility] % Lymphs 17 % [facility] % Monos 9 % [facility] % Eos 2 % [facility] % Baso 0 % [facility] # Neutros 9.19 (H) 1.56 - 6.13 K/L [facility] # Lymphs 2.15 1.18 - 3.74 K/L [facility] # Monos 1.20 (H) 0.24 - 0.36 K/L [facility] # Eos 0.25 0.04 - 0.36 K/L [facility] # Baso 0.03 0.01 - 0.08 K/L [facility] Immature Granulocytes-Relative 0 0 - 1 % [facility] Specimen Blood Performing Organization Address City/[facility] Phone Number [address] [address] [place] aPTT (11/21/2018 12:57 AM CDT) PTT 30.3 22.5 - 36.0 seconds [facility] Specimen Blood Performing Organization Address City/[facility]ode Phone Number [address] [address] [phone] [place] Prothrombin time/INR (11/21/2018 12:57 AM CDT) Protime 14.4 (H) 11.9 - 14.2 seconds [facility] INR 1.2 <=5.9 [facility] Specimen Blood Narrative Performed At Effective 09/24/2018: PT Reference Range [facility] Change New: 11.9-14.2Previous: 11.7-14.7 RECOMMENDED COUMADIN/WARFARIN INR THERAPY RANGES STANDARD DOSE: 2.0-3.0Includes: PROPHYLAXIS for venous thrombosis, systemic embolization; TREATMENT for venous thrombosis and/or pulmonary embolus. HIGH RISK: Target INR is 2.5-3.5 for patients wiht mechanical heart valves. Performing Organization Address [facility] Phone Number [address] [address] [place] after 12/08/2017 Advance Directives For more information, please contact:[address] [phone] Code Status Date Activated Date Inactivated Comments Full Code 11/20/2018 6:29 PM 11/21/2018 7:30 PM This code status was determined by: Patient
[2018-12-09 09:49] LABS: Absolute Lymphocytes (CBC) 2.3 K/uL (0.7-4.9); Lymphocytes % 38.9 % (15.3-44.8); MPV 8.4 fL (7.6-11.3); Protime INR 1.03; RBC Red Blood Cell Count 3.75 M/uL (3.86-4.86)
[2018-12-09 09:53] LABS: Urine Appearance TURBID; Urine Blood 3+ (NEG); Urine Color RED; Urine Glucose TRACE (NEG); Urine Protein 3+ (NEG); Urine Specific Gravity 1.025 (1.005-1.030)
[2018-12-09 09:56] LABS: Urine Bilirubin 3+ (NEG)
[2018-12-09 10:02] LABS: Phosphorus 3.3 mg/dL (2.5-4.9); Potassium 4.1 mmol/L (3.5-5.1); Uric Acid 5.8 mg/dL (2.6-6.0)
[2018-12-09] MEDS ORDERED: Ringers Lactate 1,000 ML IV ONE ×2 (10:09→12:50)
[2018-12-09 10:11] LABS: Urine Bacteria 20-50 /HPF (<20); Urine RBC TNTC /HPF (NONE SEEN)
[2018-12-09 10:12] LABS: Urine Culture Reflex Order REFLEXED
--- NOTE | 2018-12-09 10:23 | RAD REPORT ---
EXAM DESCRIPTION: RAD - Chest Pa And Lat (2 Views) - 12/09/2018 9:46 am CLINICAL HISTORY: pre op Chest pain. COMPARISON: Abdomen 1 View (KUB) dated 12/08/2018 FINDINGS: The lungs are hyperexpanded but clear. The heart is normal in size. No displaced fractures .
[2018-12-09] MEDS: GENTAMICIN 80 MG/100 ML BAG 80 MG/100 ML BAG IV ONE ×2 (11:30→11:42)
[2018-12-09] MEDS ORDERED: FENTANYL CITR 100 MCG/2 ML ONE (11:36)
[2018-12-09] MEDS ORDERED: PROPOFOL 200 MG/20 ML VIAL IV ONE (11:37)
[2018-12-09] MEDS ORDERED: LIDOCAINE 1% MPF 2 ML AMPULE ONE (11:38)
[2018-12-09] MEDS ORDERED: MIDAZOLAM HCL 2 MG/2 ML INJ ONE (11:38)
[2018-12-09] MEDS ORDERED: ONDANSETRON 4 MG/2 ML VIAL ONE (12:15)
[2018-12-09] MEDS ORDERED: dexAMETHasone 10 MG/ML VIAL ONE (12:17)
[2018-12-09] MEDS ORDERED: NS 0.9% VIAL 10 ML ONE (12:29)
[2018-12-09] MEDS ORDERED: Phenylephrine HCl 10 MG/ML 1 ML VIAL ONE (12:29)
--- NOTE | 2018-12-09 16:00 | EKG ---
Test Date: 2018-12-09 Test Time: 09:23:54 Mail Reader: NATHANAEL MEASUREMENT RESULTS: Intervals: Rate: 90 MO: 148 QRSD: 108 QT: 372 QTc: 455 [place]: P: 57 MO: 148 QRS: -19 T: 33 INTERPRETIVE STATEMENTS: Normal sinus rhythm Incomplete left bundle branch block Borderline ECG No previous ECG available for comparison Electronically Signed On 12-09-18 15:58:13 CDT by David Clements
== END 2018-12-09 14:25 | disposition home or self-care (01) ==
LOC: OR 08:54
PROVIDERS: ATTEND Urology
PROC: 0TF4XZZ Fragmentation in Left Kidney Pelvis, External Approach (ICD-10-PCS; principal; 2018-12-09 11:15)
DX: N20.2 Calculus of kidney with calculus of ureter (principal); J45.909 Unspecified asthma, uncomplicated; Z88.0 Allergy status to penicillin; Z87.891 Personal history of nicotine dependence; Z80.1 Family history of malignant neoplasm of trachea, bronchus and lung; Z80.8 Family history of malignant neoplasm of other organs or systems
CPT/HCPCS: 36415; 50590; 71046; 80048; 81001; 82330; 82360; 84100; 84550; 85025; 85610; 85730; 87086; 87088; 88300; 93005; J1100; J1580; J2001; J2250; J2370; J2405; J2704; J3010